=== PATIENT | female | born 1990 | race African-American/Black ===

== ENCOUNTER 2020-10-28 22:44 | Emergency (ER) | payer OTHER, SELFPAY ==
[2020-10-28 23:40] LABS: Pregnancy Test - Urine (BHCG) Negative (Negative); Specific Gravity 1.025 (1.002-1.036)
[2020-10-28 23:41] LABS: Pregu Control Background? CLEAR/WHITE (CLR/WHITE); Pregu Control Bar Appear? YES (CONTROL BAR)
[2020-10-29] MEDS ORDERED: Ibuprofen 200 MG TAB ONE (00:08)
== END 2020-10-29 00:13 | disposition home or self-care (01) ==
LOC: NAV ERS 22:44
DX: S39.012A Strain of muscle, fascia and tendon of lower back, initial encounter (principal); R51.9 Headache, unspecified; V43.62XA Car passenger injured in collision with other type car in traffic accident, initial encounter; Y92.410 Unspecified street and highway as the place of occurrence of the external cause
CPT/HCPCS: 70450; 72100; 81025

== ENCOUNTER 2021-03-28 13:10 | Emergency (ER) | payer SELFPAY ==
[2021-03-28] MEDS ORDERED: Mag-Al Plus 1200 MG/1200 MG/120 MG/30 ML UDCUP ONE (13:50)
== END 2021-03-28 14:13 | disposition home or self-care (01) ==
LOC: NAV ERS 13:10
DX: K29.70 Gastritis, unspecified, without bleeding (principal); R19.7 Diarrhea, unspecified
CPT/HCPCS: 99283

== ENCOUNTER 2021-06-10 01:32 | Emergency (ER) | payer SELFPAY ==
[2021-06-10] MEDS ORDERED: Dicyclomine 20 MG/2 ML VIAL ONE (02:06)
[2021-06-10] MEDS ORDERED: Ondansetron ODT 4 MG TAB ONE (02:06)
== END 2021-06-10 02:30 | disposition home or self-care (01) ==
LOC: NAV ERS 01:32
DX: R11.2 Nausea with vomiting, unspecified (principal); R10.10 Upper abdominal pain, unspecified; F17.210 Nicotine dependence, cigarettes, uncomplicated
CPT/HCPCS: 96372; 99283; J0500; Q0162

== ENCOUNTER 2021-06-11 06:27 | Emergency (ER) | payer SELFPAY | END 2021-06-11 07:26 | disposition home or self-care (01) | LOC: NAV ERS 06:27 | DX: A08.4 Viral intestinal infection, unspecified (principal); F17.210 Nicotine dependence, cigarettes, uncomplicated | CPT/HCPCS: 99283 ==

== ENCOUNTER 2021-06-18 02:26 | Emergency (ER) | payer SELFPAY | END 2021-06-18 03:15 | disposition home or self-care (01) | LOC: NAV ERS 02:26 | DX: K59.00 Constipation, unspecified (principal); Z87.891 Personal history of nicotine dependence | CPT/HCPCS: 99283 ==

== ENCOUNTER 2021-11-04 16:43 | Emergency (ER) | payer SELFPAY | END 2021-11-04 17:10 | disposition home or self-care (01) | LOC: NAV ERS 16:43 | DX: B37.3 Candidiasis of vulva and vagina (principal); Z87.891 Personal history of nicotine dependence | CPT/HCPCS: 99283 ==

== ENCOUNTER 2021-12-02 08:32 | Emergency (ER) | payer SELFPAY ==
[2021-12-02 09:20] LABS: Bilirubin Negative (Negative); Blood, Urine Small (Negative); Clarity Clear (Clear); Glucose, Urine (Dipstick) Negative (Negative); Ketone, Urine Negative (Negative); Leukocyte Negative (Negative); Nitrite Negative (Negative); Protein, Urine (Dipstick) Trace mg/dL (Neg-Trace); Specific Gravity, Urine 1.025 (1.005-1.030); Urobilinogen 0.2 mg/dL (Less than 2)
[2021-12-02 09:38] LABS: Bacteria/HPF None Seen HPF (None Seen); RBC/HPF 0-3 HPF (0-3); Squamous Epithelial 0-3 HPF (0-3); WBC/HPF None Seen HPF (0-3)
== END 2021-12-02 09:24 | disposition home or self-care (01) ==
LOC: NAV ERS 08:32
DX: M54.50 Low back pain, unspecified (principal); Z87.891 Personal history of nicotine dependence
CPT/HCPCS: 81003; 81015; 99283

== ENCOUNTER 2021-12-19 09:24 | Emergency (ER) | payer SELFPAY ==
[2021-12-19] MEDS ORDERED: Lidocaine Viscous Sol 2% 15 ml UD Cup ONE (09:48)
[2021-12-19] MEDS ORDERED: Ondansetron ODT 4 MG TAB ONE (09:48)
[2021-12-19] MEDS ORDERED: Mag-Al Plus 1200 MG/1200 MG/120 MG/30 ML UDCUP ONE (09:48)
[2021-12-19] MEDS ORDERED: Pantoprazole 40 MG VIAL ONE (11:05)
[2021-12-19] MEDS ORDERED: Ondansetron PF 4 MG/2 ML Vial ONE (11:05)
[2021-12-19 11:45] LABS: Bilirubin Small (Negative); Blood, Urine Negative (Negative); Clarity Clear (Clear); Glucose, Urine (Dipstick) Negative (Negative); Ketone, Urine Negative (Negative); Leukocyte Negative (Negative); Nitrite Negative (Negative); Protein, Urine (Dipstick) 30 mg/dL (Neg-Trace); Specific Gravity, Urine 1.025 (1.005-1.030); Urobilinogen 0.2 mg/dL (Less than 2); pH, Urine 5.5 (5.0-9.0)
[2021-12-19 11:48] LABS: #Eosinphils 0.1 thou/uL (0.0-0.7); #Lymphocytes 1.2 thou/uL (1.20-3.40); #Monocytes 0.4 thou/uL (0.11-0.59); #Neutrophils 3.4 thou/uL (1.40-6.50); %Basophils 0.8 % (0.0-1.0); %Lymphocytes 23.5 % (21.0-51.0); %Monocytes 8.2 % (0.0-10.0); %Neutrophils 65.6 % (42.0-75.0); Hemoglobin 9.3 g/dL (12.0-16.0); Mean Corpuscular HGB CONC 28.9 g/dL (32.0-36.0); Mean Corpuscular Hemoglobin 21.7 pg (27.0-31.0); Mean Corpuscular Volume 75.1 fL (78.0-98.0); Platelet Count 382 thou/uL (130-400); RBC Distribution Width 16.5 % (11.5-14.5); Red Blood Cell (RBC) Count 4.27 mill/uL (4.20-5.40); White Blood Cell (WBC) Count 5.2 thou/uL (4.8-10.8)
[2021-12-19 11:56] LABS: RBC/HPF None Seen HPF (0-3); WBC/HPF None Seen HPF (0-3)
[2021-12-19 11:57] LABS: Bacteria/HPF Rare-Few HPF (None Seen)
[2021-12-19 12:00] LABS: ALT (SGPT) 15 U/L (8-55); AST (SGOT) 13 U/L (5-34); Albumin 3.9 g/dL (3.5-5.0); Alkaline Phosphatase 39 U/L (40-110); Anion Gap 14 mmol/L (10-20); BUN (Urea Nitrogen) 10 mg/dL (7.0-18.7); Bilirubin, Total 0.3 mg/dL (0.2-1.2); Calc. Creatinine Clearance 0 mL/min (70-130); Carbon Dioxide 23 mmol/L (22-29); Chloride 107 mmol/L (98-107); Estimated GFR 101; Globulin 2.8 g/dL (2.4-3.5); Glucose 104 mg/dL (70-105); Lipase 15 U/L (8-78); Potassium 4.5 mmol/L (3.5-5.1); Protein, Total 6.7 g/dL (6.0-8.3); Sodium 139 mmol/L (136-145)
== END 2021-12-19 12:58 | disposition home or self-care (01) ==
LOC: NAV ERS 09:24
DX: K52.9 Noninfective gastroenteritis and colitis, unspecified (principal); Z87.891 Personal history of nicotine dependence
CPT/HCPCS: 80053; 81003; 81015; 83690; 85025; 96374; 96375; C9113; J2405; Q0162

== ENCOUNTER 2021-12-24 06:14 | Emergency (ER) | payer SELFPAY | END 2021-12-24 07:06 | disposition home or self-care (01) | LOC: NAV ERS 06:14 | DX: K04.7 Periapical abscess without sinus (principal); Z87.891 Personal history of nicotine dependence | CPT/HCPCS: 96372; 99282 ==

== ENCOUNTER 2022-03-24 16:42 | Emergency (ER) | payer SELFPAY ==
[2022-03-24] MEDS ORDERED: Ketorolac Tromethamine 60 MG/2 ML VIAL ONE (17:35)
== END 2022-03-24 18:01 | disposition home or self-care (01) ==
LOC: NAV ERS 16:42
DX: K02.9 Dental caries, unspecified (principal); F17.210 Nicotine dependence, cigarettes, uncomplicated
CPT/HCPCS: 96372; 99282; J1885

== ENCOUNTER 2023-03-29 09:05 | Emergency (ER) | payer MEDICAID, OTHER, SELFPAY | END 2023-03-29 09:45 | disposition home or self-care (01) | LOC: NAV ERS 09:05 | DX: R19.7 Diarrhea, unspecified (principal); I10 Essential (primary) hypertension; Z79.01 Long term (current) use of anticoagulants; Z79.899 Other long term (current) drug therapy | CPT/HCPCS: 99283 ==

== ENCOUNTER 2023-05-11 18:09 | Emergency (ER) | payer OTHER ==
[2023-05-11 18:57] LABS: Bilirubin Negative (Negative); Blood, Urine Negative (Negative); CAUTI Indications for Culture Dysuria,urgency,freq; Clarity Clear (Clear); Glucose, Urine (Dipstick) Negative (Negative); Ketone, Urine Trace mg/dL (Negative); Leukocyte Negative (Negative); Mucous/LPF 2+ LPF (<2+); Nitrite Negative (Negative); Protein, Urine (Dipstick) 30 mg/dL (Neg-Trace); Specific Gravity, Urine 1.028 (1.002-1.036); WBC/HPF 0-3 HPF (0-3); pH, Urine 5.5 (5.0-9.0)
[2023-05-11 18:59] LABS: Urine Culture Reflex No No
[2023-05-11] MEDS ORDERED: Ondansetron PF 4 MG/2 ML Vial ONE (20:57)
[2023-05-11] MEDS ORDERED: HYDROmorphone 0.5 MG/0.5 ML SYRINGE ONE (20:58)
== END 2023-05-11 19:30 | disposition home or self-care (01) ==
LOC: NAV ERS 18:09
DX: B37.31 Acute candidiasis of vulva and vagina (principal); I10 Essential (primary) hypertension; Z79.01 Long term (current) use of anticoagulants; Z79.899 Other long term (current) drug therapy
CPT/HCPCS: 81001; 99283; J1170; J2405

== ENCOUNTER 2023-10-04 09:55 | Emergency (ER) | payer MEDICAID, OTHER, SELFPAY ==
[2023-10-04 10:54] LABS: #Eosinphils 0.2 thou/uL (0.0-0.7); #Lymphocytes 1.4 thou/uL (1.20-3.40); #Monocytes 0.6 thou/uL (0.11-0.59); #Neutrophils 2.7 thou/uL (1.40-6.50); %Basophils 0.9 % (0.0-1.0); %Eosinophils 3.3 % (0.0-10.0); %Lymphocytes 28.5 % (21.0-51.0); %Monocytes 11.8 % (0.0-10.0); %Neutrophils 55.4 % (42.0-75.0); Hematocrit 20.8 % (36.0-47.0); Hemoglobin 5.3 g/dL (12.0-16.0); Mean Corpuscular HGB CONC 25.7 g/dL (32.0-36.0); Mean Corpuscular Hemoglobin 14.3 pg (27.0-31.0); Mean Corpuscular Volume 55.8 fl (78.0-98.0); Mean Platelet Volume 5.7 fL (7.4-10.4); Platelet Count 223 10x3/uL (130-400); RBC Distribution Width 17.3 % (11.5-14.5); Red Blood Cell (RBC) Count 3.72 mill/uL (4.20-5.40)
[2023-10-04 10:55] LABS: Critical Call w/ Read Back ERS.JS3@1056
[2023-10-04 11:00] LABS: INR-International Normal Ratio 1.4; Prothrombin Time 17.6 sec (12.0-14.7)
[2023-10-04 11:02] LABS: D-Dimer Test 0.59 mcg/mL (0.27-0.43)
[2023-10-04 11:08] LABS: ALT (SGPT) 18 U/L (8-55); AST (SGOT) 22 U/L (5-34); Albumin 3.5 g/dL (3.5-5.0); Alkaline Phosphatase 46 U/L (40-110); Anion Gap 11 mmol/L (10-20); BUN (Urea Nitrogen) 10 mg/dL (7.0-18.7); Bilirubin, Total 0.5 mg/dL (0.2-1.2); Calc. Creatinine Clearance 0 mL/min (70-130); Calcium 8.5 mg/dL (7.8-10.44); Carbon Dioxide 20 mmol/L (22-29); Chloride 110 mmol/L (98-107); Estimated GFR 103; Globulin 2.9 g/dL (2.4-3.5); Glucose 96 mg/dL (70-105); Potassium 4.1 mmol/L (3.5-5.1); Protein, Total 6.4 g/dL (6.0-8.3); Sodium 137 mmol/L (136-145)
[2023-10-04 11:13] LABS: Anisocytosis MODERATE=16-30 cells (100X) (0-5/hpf)
[2023-10-04 11:14] LABS: Elliptocytes SLIGHT = 2-5 cells (100X) (0-1/hpf); Hypochromia MODERATE=16-30 cells (100X) (0-5/hpf); Microcytosis MODERATE=15-30 cells (100X) (0-5/hpf); Poikilocytosis SLIGHT = 6-15 cells (100X) (0-5/hpf); Polychromasia SLIGHT = 2-3 cells (100X) (0-2/hpf); Target Cells SLIGHT = 2-5 cells (100X) (0-1/hpf)
[2023-10-04 11:15] LABS: Burr Cells SLIGHT = 2-5 cells (100X) (0-1/hpf); Giant Platelets SLIGHT HPF (0-5); Large Platelets SLIGHT (None Seen); Platelet Adequacy Comment Appears Adequate
[2023-10-04 11:19] LABS: BHCG - Serum Negative (NEGATIVE); Pregs Control Bar Appear? YES (CONTROL BAR)
== END 2023-10-04 13:40 | disposition short-term general hospital (02) ==
LOC: NAV ERS 09:55
DX: D64.9 Anemia, unspecified (principal); D66 Hereditary factor VIII deficiency; R79.89 Other specified abnormal findings of blood chemistry; R22.43 Localized swelling, mass and lump, lower limb, bilateral; I10 Essential (primary) hypertension; Z79.899 Other long term (current) drug therapy
CPT/HCPCS: 36415; 36430; 71045; 80053; 82274; 83880; 84703; 85025; 85379; 85610; 85730; 86850; 86900; 86901; P9016